=== PATIENT | male | born 1980 | race Caucasian/White ===

== ENCOUNTER 2017-05-10 10:05 | Emergency (ER) | payer OTHER ==
[~2017-05-10] VITALS: Ht 175.3 cm; Wt 70.0 kg
[~2017-05-10 10:05] MED LIST: AMT25 PO; CYCL10TA6 PO; IBUP-1451 PO; MRPSR60 PO; RTL20 PO; TEST1INJ2 IM
[2017-05-10 10:14] VITALS: TEMP 36.6; Ht 175.3 cm; Wt 70.0 kg
[2017-05-10] MEDS ORDERED: OXYC1TAB3 PO (10:51)
[2017-05-10] MEDS ORDERED: LISD70CA PO (10:59)
[2017-05-10] MEDS ORDERED: NAPR1TAB9 PO (10:59)
[2017-05-10 11:04] VITALS: BP 133/85; PULSE 75; O2SAT 99
--- NOTE | 2017-05-10 16:53 | EMERGENCY ROOM VISIT NOTE ---
History Report prepared by Bobbi: Patricia Sommers Under the Supervision of: Dr. Tristian Soto M.D. First contact with patient: 10:35 Chief Complaint: BACK PAIN Stated Complaint: SEVERE SCIATICA/S1 AND 4-5 LB CRUSHED History of Present Illness The patient is a 36 year old male who presents to the Emergency Room with complaints of worsening lower back pain for the past two years. The patient states that he has had vertebral disc problems since 2004. Initially he was following with a pain clinic but states that over the past few years he has been managing his symptoms with ice, heat, and Aleve. His symptoms have been slowly worsening for the past two years. He states that lately the pain is getting to be "too much to bear." The patient states that his pain starts at the top of his left buttock and radiates down his left leg. He rates his pain as a 9/10 in severity. He denies doing anything out of his normal routine. He denies any unusual heavy lifting or straining. He denies any recent trauma, falls, or injury. The patient denies numbness, weakness, fever, abdominal pain, and urinary or fecal incontinence. He does report that for the past year he has had some issues with urinating. He states that he will urinate but feels like he still has to go afterward. This has been unchanged for the past year..The patient follows with Dr. Staton of Orthopedics. He called Dr. Staton this morning and scheduled an appointment for 05/16/17 for follow-up. Source of History: patient Onset: 2 years ago Position: back (lower) Symptom Intensity: 9/10 Quality: sharp, other (radiating) Timing: worsening Modifying Factors (Relieving): ice, heat Associated Symptoms: + urinary symptoms (frequency), No fevers, No abdominal pain, No weakness, No numbness Note: Pt notes pain down left leg. Pt denies heavy lifting, trauma, injury, fall, and incontinence. Review of Systems See HPI for pertinent positives & negatives. A total of 10 systems reviewed and were otherwise negative. Past Medical & Surgical Medical Problems: (1) Dental Disorder Nos (2) Low back pain Family History No significant family history Social History Smoking Status: Never Smoker Smokeless Tobacco Use: Yes Marital Status: single Housing Status: lives alone Occupation Status: disabled Current/Historical Medications Scheduled Lisdexamfetamine Dimesylate (Vyvanse), 1 CAP PO DAILY Testosterone Cypionate (Testosterone Cypionate), 200 MG IM MONTHLY Scheduled PRN Cyclobenzaprine Hcl (Flexeril), 10 MG PO TID PRN for Pain Naproxen (Aleve), 220 MG PO for Pain Oxycodone Ir (Roxicodone Ir), 5 MG PO Q4H PRN for Pain Allergies Coded Allergies: Acetaminophen (Unverified Allergy, Intermediate, GI SYMPTOMS, 05/10/17) Celecoxib (Verified Adverse Reaction, Unknown, nausea, 05/10/17) Rofecoxib (Verified Adverse Reaction, Unknown, nausea, 05/10/17) Tramadol (Unverified Adverse Reaction, Unknown, H/A, SHAKY, 05/10/17) Physical Exam Vital Signs Date Time Temp Pulse Resp B/P (MAP) Pulse Ox O2 Delivery O2 Flow Rate FiO2 05/10/17 11:04 75 18 133/85 99 05/10/17 10:14 36.6 124 18 138/89 100 Room Air Physical Exam Constitutional: Vital signs reviewed. Eyes: Pupils are equal round reactive to light. Conjunctiva are noninjected. ENT: Pharynx is clear without erythema or exudate. Mucous membranes are moist. Neck supple without meningeal signs. Respiratory: Clear to auscultation bilaterally. Breath sounds are equal bilaterally. Cardiovascular: Regular rate and rhythm. No rubs or gallops. GI: Soft, nondistended and nontender. Bowel sounds are present. Musculoskeletal: No midline tenderness to lumbosacral spine. Positive straight leg raise on the left at 30 degrees. No peripheral edema. No lower extremity tenderness. Integumentary: No cyanosis. Neurological: The patient is awake and alert. No focal deficits. Motor and sensation intact throughout the lower extremities. DTR 2+ bilateral knees and ankles. Psychiatric: Normal affect. Medical Decision & Procedures ED Course 1035: The patient was evaluated in room B5. A complete history and physical exam was performed. At this time I discussed the results and treatment plan with the patient. I answered all pertaining questions that he had. He expressed understanding and verbalized agreement. The patient will be discharged home. He will follow-up with his orthopedist next week. Medical Decision This is a 36-year-old male presents with low back pain radiating down his leg. I did perform a limited focused review of portions of the patient's old chart on the electronic medical record. The patient had an MRI of his lumbar spine in 2005, which showed multiple level degenerative disease. I did evaluate the patient as noted above. He has a long-standing history of chronic back pain and is on disability. He resents with worsening pain which she states has been going on for about 2 years. He has an appointment to see his orthopedic doctor next week but presents here for pain control. He has no signs of cauda equina syndrome. He is neurologically intact. He was given a prescription for OxyIR and discharged in good condition. He was given return instructions as outlined below. [place] Drug Monitoring Program Search Results: patient reviewed within database, no issues identified Medication Reconcilliation Current Medication List: was personally reviewed by me Blood Pressure Screening Patient's blood pressure: Elevated blood pressure Blood pressure disposition: Referred to PCP Impression Primary Impression: Acute exacerbation of chronic low back pain Scribe Attestation The scribe's documentation has been prepared under my direct and personally reviewed by me in its entirety. I confirm that the note above accurately reflects all work, treatment, procedures, and medical decision making performed by me. Departure Information Dispostion Home / Self-Care Prescriptions Oxycodone Ir (Roxicodone Ir) 5 Mg Tab 5 MG PO Q4H Y for Pain, #20 TAB Prov: Tristian Soto M.D. 05/10/17 Referrals No Doctor, Assigned (PCP) Forms HOME CARE DOCUMENTATION FORM, IMPORTANT VISIT INFORMATION Patient Instructions Back Pain - [facility], [facility] Additional Instructions You have been examined and treated today on an emergency basis only. This is not a substitute for, or an effort to provide, complete comprehensive medical care. It is impossible to recognize and treat all injuries or illnesses in a single emergency department visit. It is therefore important that you follow up closely with Dr. Staton per your appointment. Return for worsening symptoms or if you develop fever, vomiting, abdominal pain, loss of control of your bowel or bladder, numbness or weakness to your legs, numbness to your private area, difficulty urinating, or any other concerning symptoms.
== END 2017-05-10 11:07 | disposition home or self-care (01) ==
LOC: C.EDB 10:08
DX: M54.5 Low back pain (principal)

== ENCOUNTER 2017-06-04 12:17 | Emergency (ER) | payer OTHER ==
[~2017-06-04] VITALS: Ht 175.3 cm; Wt 73.1 kg
[~2017-06-04 12:17] MED LIST changes: -AMT25 PO; -IBUP-1451 PO; +LISD70CA PO; -MRPSR60 PO; +NAPR1TAB9 PO; +OXYC1TAB3 PO; -RTL20 PO
[2017-06-04 12:19] VITALS: TEMP 36.9; Ht 175.3 cm; Wt 73.1 kg
[2017-06-04] MEDS ORDERED: NAPR500T3 PO (12:50)
[2017-06-04] MEDS ORDERED: MoRPHine SULFATE 10 MG/ML CARP/VIAL IM STA (13:22)
[2017-06-04] MEDS ORDERED: DEXAMETHASONE SOD INJ 4 MG/ML VIAL IM STA (13:22)
[2017-06-04] MEDS ORDERED: OXYC1TAB3 PO (13:28)
[2017-06-04] MEDS ORDERED: CARI350T27 PO (13:28)
[2017-06-04] MEDS ORDERED: METH4PAK PO (13:28)
--- NOTE | 2017-06-04 13:30 | EMERGENCY ROOM VISIT NOTE ---
History First contact with patient: 13:02 Chief Complaint: BACK PAIN Stated Complaint: LOWER BACK PAIN History of Present Illness The patient is a 36 year old male who presents to the Emergency Room with complaints of low back pain radiating down his left leg that has been ongoing for the last several years. The patient has a history of a "crushed disc" at L4 -L5. He has been following with his primary care physician in addition to a spine doctor. He is due to see pain management on June 12. The patient has been trying muscle relaxants at home with minimal relief. He denies any urinary or bowel incontinence. No weakness in the legs. No fever or chills. Review of Systems 6 system review negative. Please see pertinent positives in the history of present illness section. Past Medical/Surgical History Medical Problems: (1) Dental Disorder Nos (2) Low back pain Family History No significant family history Social History Smoking Status: Former Smoker Marital Status: single Housing Status: lives alone Occupation Status: disabled Current/Historical Medications Scheduled Carisoprodol (Soma), 350 MG PO BID Lisdexamfetamine Dimesylate (Vyvanse), 1 CAP PO DAILY Methylprednisolone (Medrol Dosepak), 0 PO DAILY Testosterone Cypionate (Testosterone Cypionate), 200 MG IM MONTHLY Scheduled PRN Cyclobenzaprine Hcl (Flexeril), 10 MG PO TID PRN for Pain Naproxen (Naproxen), 1 TAB PO UD PRN for Pain Oxycodone Ir (Roxicodone Ir), 1-2 TAB PO Q4H PRN for Pain Physical Exam Vital Signs Date Time Temp Pulse Resp B/P (MAP) Pulse Ox O2 Delivery O2 Flow Rate FiO2 06/04/17 14:19 97 18 154/99 99 06/04/17 13:40 89 18 140/90 98 Room Air 06/04/17 12:19 36.9 102 16 151/94 97 Room Air Physical Exam VITALS: Vitals are noted on the nurse's note and reviewed by myself. Vital signs stable. GENERAL: 36-year-old male, in no acute distress, nondiaphoretic, well-developed well-nourished. SKIN: The skin was without rashes, erythema, edema, or bruising. HEAD: Normocephalic atraumatic. NECK: Supple without nuchal rigidity. . Cervical spine is nontender. No JVD. HEART: Regular rate and rhythm without murmurs gallops or rubs. LUNGS: Clear to auscultation bilaterally without wheezes, rales or rhonchi. No accessory muscle use. MUSCULOSKELETAL: Mild tenderness to palpation in the lumbar spinous processes. Mild tenderness over the left SI joint. Negative straight leg test bilaterally. Sensation of the lower extremities is intact. Strength 5/5 throughout. NEURO: Patient was alert and oriented to person place and time. Normal sensation to touch. No focal neurological deficits. Medical Decision & Procedures Medications Administered Medications (Trade) Dose Ordered Sig/Erma Route Start Time Stop Time Status Last Admin Dose Admin Dexamethasone Sodium Phosphate (Decadron Inj) 10 mg NOW STAT IM 06/04/17 13:22 06/04/17 13:23 DC 06/04/17 13:43 10 MG Morphine Sulfate (MoRPHine SULFATE INJ) 8 mg NOW STAT IM 06/04/17 13:22 06/04/17 13:23 DC 06/04/17 13:42 8 MG ED Course The patient was seen and examined He was given Decadron 10 mg IM and morphine 8 mg IM Upon reevaluation, the patient's pain was improved. 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 He has not had any recent injuries. This is ongoing chronic pain. He has seen a spine doctor. He is supposed to see pain management on June 12. On exam, the patient was mildly tender in the lumbar spinous processes. He was neurologically intact. He did not have any urinary or bowel incontinence. No saddle paresthesias. I do not find imaging necessary. The patient was medicated with morphine and Decadron. He was put on a short course of narcotics, muscle relaxants and a Medrol Dosepak. He was instructed to follow-up with pain management for further treatment. He was happy with the plan. He will return to the emergency department with a new or concerning symptoms. This chart was completed in part utilizing [employer] Voice Recognition software. Attempts were made to minimize the grammatical errors, random word insertions, pronoun errors and incomplete sentences. Any formal questions or concerns about the content, text or information contained within the body of this dictation should be directly addressed to the provider for clarification. Medication Reconcilliation Current Medication List: was personally reviewed by me Blood Pressure Screening Patient's blood pressure: Elevated blood pressure Blood pressure disposition: Elevated BP felt to be situational Impression Primary Impression: Acute exacerbation of chronic low back pain Departure Information Dispostion Home / Self-Care Condition GOOD Prescriptions Carisoprodol (SOMA) 350 Mg Tab 350 MG PO BID for Muscle Spasms, #20 TAB Prov: Marlyn Benavides PA-C 06/04/17 Methylprednisolone (MEDROL DOSEPAK) 4 Mg Jose Maria 0 PO DAILY, #1 PKT Prov: Marlyn Benavides PA-C 06/04/17 Oxycodone Ir (Roxicodone Ir) 5 Mg Tab 1-2 TAB PO Q4H Y for Pain, #15 TAB For Initial Treatment Prov: Marlyn Benavides PA-C 06/04/17 Referrals Raymundo Ramirez III, M.D. (PCP) Patient Instructions My [facility] Additional Instructions You were evaluated in the emergency department for severe back pain. Please follow-up with pain management as scheduled. Take steroids as prescribed Oxycodone for severe pain Oxycodone Immediate Release (OxyIR) 5mg: Take 1-2 pills every four hours for pain. Avoid alcohol, operating machinery or dangerous equipment, working on ladders or roofs, DRIVING, or situations where being under the influence may be dangerous. It is recommended to use an [id number] stool softener such as Colace, 100mg twice daily while taking this medication to avoid constipation. Soma 1 tab twice daily as needed for muscle spasms. Please do not drink alcohol or drive or taking this medication. Return to the emergency department if you have any of the following symptoms: -Problems with urination -Weakness in your legs -Chest pain -Shortness of breath -Worsening pain Please also follow-up with your primary care physician next 2-3 days.
[2017-06-04 14:19] VITALS: BP 154/99; PULSE 97; O2SAT 99
== END 2017-06-04 14:20 | disposition home or self-care (01) ==
LOC: C.EDB 12:18 → C.EDD 14:20
DX: M51.16 Intervertebral disc disorders with radiculopathy, lumbar region (principal); R03.0 Elevated blood-pressure reading, without diagnosis of hypertension; Z87.891 Personal history of nicotine dependence

== ENCOUNTER → 2017-06-05 | Outpatient (CLI) | payer OTHER ==
[~2017-06-05] MED LIST changes: +CARI350T27 PO; +METH4PAK PO; +NAPR500T3 PO
--- NOTE | 2017-06-05 16:01 | DIAGNOSTIC IMAGING REPORT ---
LUMBAR SPINE W/O CONTRAST CLINICAL HISTORY: 36 years-old Male presenting with LUMBAR HERNIATION, injured back at work in 2004, radiating pain to the left leg, not alleviated with physical therapy. TECHNIQUE: Multisequence, multiplanar MR imaging of the lumbar spine was performed without the use of intravenous contrast. IV contrast: None. COMPARISON: Outside MR L-spine from 09/30/2014. FINDINGS: Localizer images: Unremarkable. Normal lumbar lordosis. Vertebral bodies maintain normal height, alignment, and bone marrow signal intensity. Intervertebral disc desiccation noted with minimal height loss at L4-5 and L5-S1 similar to prior exam. L1-2: No significant neural foraminal or spinal canal stenosis. L2-3: No significant neural foraminal or spinal canal stenosis. L3-4: Minimal disc bulge at L3-4 results in minimal bilateral neural foraminal narrowing. L4-5: Disc bulge at L4-5 is unchanged in severity though the presence of an annular fissure is now apparent (series 4 image 9). In combination with mild facet arthropathy, mild bilateral neural foraminal narrowing results. No significant spinal canal narrowing. L5-S1: Minimal disc bulge results in mild bilateral neural foraminal narrowing. Spinal cord ends in good position at the superior endplate of L1. Cauda equina normal in morphology. Paraspinal soft tissues within normal limits. IMPRESSION: 1. Mild multilevel degenerative changes at L3-4 through L5-S1. Neural foraminal narrowing at these levels is unchanged since 2014 though the presence of an annular fissure at L4-5 is now apparent. Electronically signed by: Benson Brewster M.D. 06/05/2017 4:00 PM Dictated Date/Time: 06/05/2017 3:53 PM
== END | disposition home or self-care (01) ==
LOC: C.MRIBC 05-23 11:40
PROVIDERS: ATTEND Orthopaedic Surgery Orthopaedic Surgery of the Spine
DX: M51.26 Other intervertebral disc displacement, lumbar region (principal)

== ENCOUNTER 2017-07-04 17:23 | Emergency (ER) | payer OTHER ==
[~2017-07-04] VITALS: Ht 172.7 cm; Wt 67.1 kg
[~2017-07-04 17:23] MED LIST changes: -CARI350T27 PO; -METH4PAK PO; -NAPR1TAB9 PO; -TEST1INJ2 IM
[2017-07-04 17:33] VITALS: Ht 172.7 cm; Wt 67.1 kg
[2017-07-04] MEDS ORDERED: PRED20TA2 PO (18:16)
[2017-07-04] MEDS ORDERED: CYCL10TA6 PO (18:16)
[2017-07-04] MEDS ORDERED: KETO10TA PO (18:16)
[2017-07-04 18:30] VITALS: BP 140/93; PULSE 110; TEMP 37; O2SAT 96
[2017-07-04] MEDS ORDERED: TEST1INJ2 IM (23:29)
--- NOTE | 2017-07-05 17:58 | EMERGENCY ROOM VISIT NOTE ---
ED Visit Note First contact with patient: 17:36 Chief Complaint: Neck and lower back pain. History of Present Illness: Mr. Patel is a 36-year-old white male who ambulates into the ED complaining of cervical and lumbar back pain. Historically patient reports he has a history of chronic lower cervical and lumbar back pain with bulging disks. Clear patient had an MRI of his lumbar spine on 06/05/2017 and showed mild multiple level degenerative changes at L3-4 through L5-S1. Mild foraminal Juárez narrowing at these levels is unchanged since an MRI from 2014. There is the presence of a new annular fissure at the L4-L5. Additionally in reviewing the [facility] prescription drug monitoring website it is noted that the patient has had 4 different oxycodone prescriptions by 3 different providers in the last 30 days and the last prescription 5 days ago. When questioned patient reports he has been referred to pain management and his first appointment is not told July 14. Patient reports he developed severe back pain and lower cervical pain last night while he was at rest. Since that time his pain has been constant. He places his lower neck pain at the level of T3 extending to the level of T10 and his lower back pain starting at L2 extending to S1. He rates his discomfort 9/ 10. His cervical pain is nonradiating. His lumbar pain is radiating into the left buttocks and down the left leg. Palpation worsens the cervical pain and palpation in all movements at the waist increases his lumbar pain. He has not identified any alleviating factors related to the pain. He reports he has been taken ibuprofen without relief of his discomfort. He reports associated with his radicular pain in the left lower extremity he has having a tingling sensation in his foot but denies numbness or weakness. Patient denies any recent direct or repetitive trauma, fevers, chills, sweats, skin eruptions, skin color changes, headaches, upper respiratory tract symptoms , chest pain, shortness of breath, abdominal pain, nausea, vomiting, diarrhea, constipation, rectal bleeding, black/tarry stools, genital paresthesias, bowel and bladder dysfunction and lower extremity weakness. Review of Systems: As noted above in history of present illness. All body systems were reviewed and found to be negative as noted above. Past Medical History: Chronic back pain, status post bilateral inguinal hernia repair. Current Medications: Testosterone, Vyvanse, naproxen. Allergies to Medications: Acetaminophen, Vioxx, Celexa, tramadol. Social History: Patient is not employed; he feels safe in his home environment; he denies tobacco and alcohol use. Physical Examination: Vital Signs: Date Time Temp Pulse Resp B/P (MAP) Pulse Ox O2 Delivery O2 Flow Rate FiO2 07/04/17 18:30 37.0 110 20 140/93 96 07/04/17 17:33 37.0 110 20 140/93 96 Room Air GENERAL: 36-year-old male in mild to moderate distress due to pain, nontoxic- appearing, afebrile and hemodynamically stable. NEUROLOGICAL: Awake, alert and oriented to person, place and time. Answering questions appropriately and following commands. Normal gait. Good hand eye coordination. SKIN: Warm, dry and pink. No soft tissue eruptions or trauma noted. HEENT: Atraumatic and normocephalic. Sclera white and conjunctiva pink. No drainage from naris. Speech normal. No lymphadenopathy. Trachea midline. No jugular venous distention. BACK: No tenderness over the bony cervical spine. Tenderness throughout the T3 -S1 area of the bony spine and minimally in the left sided paraspinous culture. I do not appreciate any erythema, edema, bony deformity, bony crepitus, step- offs. Minimal muscle spasm in the left lumbar paraspinous muscle area. Decreased range of motion in all movements at the waist due to pain. No decrease in cervical spine motions. Unreliable straight leg raise test. No CVA tenderness. THORAX: Lungs sounds are clear to auscultation and equal bilaterally with symmetrical chest wall. HEART: Regular rate and rhythm. No gallops, rubs or murmurs are appreciated. ABDOMEN: Flat, soft and nontender. Positive bowel sounds in all quadrants. No guarding, rigidity or organomegaly. EXTREMITIES: Moves all extremities well on command and with purpose. All distal neurovascular statuses are intact and equal bilaterally. LOWER: 4/5 muscle strength in all movements of the hips, knees and ankles. 2+ patellar and Achilles deep tendon reflexes intact and equal bilaterally. He was able to distinguish light sensations through all dermatomes. No calf tenderness or cords. ED Course: Patient is assessed as noted above. Patient's medication list was reviewed. Patient's history from this hospital and also the state medication database was reviewed; patient has received for narcotic prescriptions for OxyIR within the last 30 days. Patient's MRI was unchanged from 5 years ago. I am concerned that the patient is drug-seeking because of his recent increase in visits. He also has allergies that inhibit giving any pain medications but OxyIR. Patient was educated about today's findings and instructed on his treatment plan ; he verbalized understanding and agreement with this plan. Clinical Impression: Acute on chronic exacerbation of back pain. Disposition: Patient discharged home in stable condition; prior to departure he was reassessed and rated his discomfort 8/10 which is a slight improvement. Plan: Patient was placed on Flexeril 10 mg every 8 hours for muscle spasm. Patient was prescribed prednisone 60 mg once a day for 5 days. Patient was prescribed 10 mg of Toradol every 6 hours as needed for pain. Patient was encouraged use ice or heat as needed for pain or stiffness. Patient was educated on appropriate lifting and moving techniques. Patient was encouraged to keep his upcoming appointment with pain management for definitive care and treatment. Patient was encouraged return ED for fevers, abdominal pain, worsening back pain , rectal/genital paresthesias, bowel and bladder dysfunction, worsening tingling of his lower legs or any new/concerning symptoms.
== END 2017-07-04 18:32 | disposition home or self-care (01) ==
LOC: C.EDB 17:24 → C.EDD 18:32
DX: M54.2 Cervicalgia (principal); M54.5 Low back pain; G89.29 Other chronic pain; Z79.899 Other long term (current) drug therapy

== ENCOUNTER → 2017-08-03 | Outpatient (CLI) | payer OTHER ==
[~2017-08-03] MED LIST changes: -CYCL10TA6 PO; +KETO10TA PO; -OXYC1TAB3 PO; +TEST1INJ2 IM
--- NOTE | 2017-08-03 11:34 | DIAGNOSTIC IMAGING REPORT ---
MRI OF THE CERVICAL SPINE WITHOUT CONTRAST CLINICAL HISTORY: Persistent neck pain. COMPARISON: None. TECHNIQUE: Utilizing a 1.5 Wendy magnet and dedicated coil, multiplanar, multiecho imaging of the cervical spine was performed without IV contrast. FINDINGS: Alignment of the cervical spine is anatomic. Vertebral body heights are maintained. There is no marrow replacement. Cervical cord signal and caliber are normal. Visualized portions of the posterior fossa are unremarkable. Paravertebral soft tissues are unremarkable. There is no intracanalicular mass or fluid collection. C2-C3: The central canal and neural foramen are patent. C3-C4: The central canal and neural foramen are patent. C4-C5: A small central disc protrusion indents the ventral aspect of the cord. This results in mild central canal narrowing. The neural foramen are patent. C5-C6: A central/left paracentral broad-based disc protrusion indents the left ventral aspect of the cord. There is moderate narrowing of the left aspect of the canal. The neural foramen are patent. C6-C7: There is a moderate-sized central/left paracentral broad-based disc protrusion that indents the left ventral aspect of the cord and results in moderate narrowing of the central canal. There is moderate narrowing of the left neural foramen and mild narrowing of the right neural foramen. C7-T1: Central canal and neural foramen are patent. IMPRESSION: 1. Multiple disc herniations, the largest of which is a moderate-sized central/left paracentral disc protrusion at C6-C7 that indents the left ventral aspect of the cord and results in moderate narrowing of the central canal. Moderate left neural foraminal narrowing at this level. 2. Broad-based left paracentral disc protrusion at C5-C6 that indents the left ventral aspect of the cord and results in central canal narrowing. 3. Tiny central disc protrusion at C4-C5 that indents the ventral aspect of the cord. Electronically signed by: Db Forte M.D. 08/03/2017 11:33 AM Dictated Date/Time: 08/03/2017 11:25 AM
== END | disposition home or self-care (01) ==
LOC: C.MRI 08:41
DX: B86 Scabies (principal); G89.4 Chronic pain syndrome; M51.26 Other intervertebral disc displacement, lumbar region; M51.36 Other intervertebral disc degeneration, lumbar region; M54.16 Radiculopathy, lumbar region; F11.20 Opioid dependence, uncomplicated; Z79.891 Long term (current) use of opiate analgesic; M51.06 Intervertebral disc disorders with myelopathy, lumbar region; M54.40 Lumbago with sciatica, unspecified side; M54.2 Cervicalgia; M79.605 Pain in left leg